=== PATIENT | male | born 1955 | race Caucasian/White ===

== ENCOUNTER → 2021-12-15 | Day surgery (SDC) | payer BC ==
[2021-12-07 14:18] LABS: BASOPHILS % (AUTO) 0.6 % (0-1); EOSINOPHILS # (AUTO) 0.1 X10'3 (0-0.9); EOSINOPHILS % (AUTO) 1.1 % (0-6); LYMPHOCYTES # (AUTO) 1.8 X10'3 (1.1-4.8); LYMPHOCYTES % (AUTO) 36.9 % (21-51); MEAN CORPUSCULAR HEMOGLOBIN 30.4 PG (27.0-31.0); MEAN CORPUSCULAR HGB CONC 33.7 g/dL (33.0-36.5); MEAN CORPUSCULAR VOLUME 90.3 FL (78-98); MEAN PLATELET VOLUME 8.2 FL (7.4-10.4); MONOCYTES # (AUTO) 0.3 X10'3 (0-0.9); NEUTROPHILS # (AUTO) 2.7 X10'3 (1.8-7.7); NEUTROPHILS % (AUTO) 55.4 % (42-75); PRE OP HEMATOCRIT 41.9 % (42.0-52.0); PRE OP HEMOGLOBIN 14.1 g/dL (14.0-17.9); PRE OP PLATELET COUNT 189 X10'3 (140-440); RED BLOOD COUNT 4.64 X10'6 (4.70-6.10)
[2021-12-07 14:19] LABS: CLARITY,URINE CLEAR (Clear); COLOR,URINE YELLOW (Yellow); GLUCOSE, URINE NEGATIVE (Neg); KETONES,URINE NEGATIVE (Neg); LEUKOCYTE ESTERASE ,URINE NEGATIVE (Neg); NITRITES, URINE NEGATIVE (Neg); OCCULT BLOOD,URINE NEGATIVE (Neg); PROTEIN,URINE NEGATIVE (Neg); UROBILINOGEN,URINE 0.2 E.U/dL (0.2-1.0)
[2021-12-07 14:21] LABS: UA COLLECTION TYPE CLN CATCH MIDSTREAM
[2021-12-07 14:58] LABS: ALBUMIN 3.9 G/DL (3.4-5.0); ALKALINE PHOSPHATASE 75 IU/L (46-116); BLOOD UREA NITROGEN 25 MG/DL (7-18); BUN/CREATININE RATIO 31.6 (5.4-32.0); CHLORIDE 104 MMOL/L (99-107); CREATININE 0.79 MG/DL (0.60-1.10); PRE OP ALT 28 U/L (30-65); PRE OP ANION GAP 10 (8-16); PRE OP AST 17 U/L (10-37); PRE OP BILIRUB, TOTAL 0.4 MG/DL (0.0-1.0); PRE OP GLUCOSE 87 MG/DL (70-104); PRE OP POTASSIUM 4.4 MMOL/L (3.4-5.1); PRE OP SODIUM 142 MMOL/L (135-145); TOTAL CARBON DIOXIDE 27.9 MMOL/L (24-32); TOTAL PROTEIN 7.7 G/DL (6.4-8.2); eGFR > 90 ML/MIN
[~2021-12-15] VITALS: Ht 188 cm; Wt 105.0 kg
[2021-12-15] VITALS (12 sets, daily range): BP systolic 96–137; BP diastolic 51–84
[~2021-12-15] MED LIST: BUPIVAcaine 0.5% inj/PF 0 ML ONE; BUPIVAcaine 0.5% inj/PF 30 ML ONE; BUPIVAcaine 0.5% inj/PF 30 ml vial IJ ONE; CYAN500T71 PO; FENTANYL CITRATE/PF 50 MCG/1 ML VIAL ONE; IBUPROFEN PO; LIDOcaine 2% (20mg/ml) 5ml vial ONE; MAGN400C PO; OMEG-79 PO; cefazolin/dext.iso 2gm/50ml IV ONE; famotidine 20mg tablet PO ONE; fentaNYL /PF 50mcg/ml 5ml ampule ONE; glycopyrrolate 0.2mg/ml inj ONE; meperidine/PF 25mg/ml syringe IV PRN; meperidine/PF 25mg/ml syringe ONE; midazolam 1 mg/ML 2ml injection ONE; morphine 2 MG/ML inj. syringe IV PRN; morphine 4 MG/ML inj SYRINge IV PRN; ondansetron/PF 4mg/2ml inj IV PRN; ondansetron/PF 4mg/2ml inj ONE; proCHLORperazine 10 MG/2 ml inj IV PRN; propofol inj 20 ML IV ONE; ringers solution, lacted 1,000 ML IV SCH; rocuronium 10mg/ml inj IV ONE; sevoflurane 250ml liquid IH ONE
--- NOTE | 2021-12-15 11:44 | NUR ---
Received from [place] via [facility], accompanied by Anesthesiologist DR SCHMID and report given by Anesthesiolgist. PT IS EASILY AROUNSABLE BUT DROWSY. RECEIVED WITH ORAL AIRWAY IN PLACE, PT IMMEDIATELY REMOVED IT UPON ARRIVAL TO PACU. VITAL SIGN STABLE HEART RATE IN THE HIGH 40'S. PER ANESTHESIA HE WAS IN THE LOW 50'S DURING SURGERY. THREE LOWER ABDOMINAL INCISION CLOSED WITH DERMABOD, OPEN TO AIR, NO DRESSING COVERING SURGICAL WOUNDS. NO HEMATOMA OR BLEEDING NOTED.
--- NOTE | 2021-12-15 13:24 | NUR ---
PT UP AND AMBULATED WITHOUT DIFFICULTY. VITAL SIGNS STABLE, MINIMAL PAIN, PT FINALLY ABLE TO URINATE 300CC, BLADDER SCAN SHOWS MINIMAL RESIDUAL LESS THAN 20 CC. PT REEDUCATED ON THE IMPORTANCE OF URINATION POST PROCEDURE, PT DISCHARGED VIA WHEELCHAIR WITH TO HOME
== END | disposition home or self-care (01) ==
LOC: PAS 06:12
PROVIDERS: ATTEND Surgery
DX: K40.90 Unilateral inguinal hernia, without obstruction or gangrene, not specified as recurrent (principal); D17.6 Benign lipomatous neoplasm of spermatic cord; J45.909 Unspecified asthma, uncomplicated; M19.90 Unspecified osteoarthritis, unspecified site; Z98.890 Other specified postprocedural states; Z79.899 Other long term (current) drug therapy; Z20.822 Contact with and (suspected) exposure to COVID-19; Z80.9 Family history of malignant neoplasm, unspecified
CPT/HCPCS: 36415; 49650; 80053; 81003; 82948; 85025; 93005; C1758; C1781; J2250; J2270; J2405; J2704; J3010; J3490; J7120; S0020; S2900; U0003; U0005; Z7506; Z7508; Z7512; A4215; A4618; J2175